=== PATIENT | male | born 1955 | race Caucasian/White ===

== ENCOUNTER 2025-02-16 13:54 | Outpatient (AMB) | payer MEDICARE, SELFPAY ==
[2025-02-16 14:03] VITALS: BMI 26.4
--- NOTE | 2025-02-16 14:03 | HO.SPINEOV ---
Vital Signs 02/16/25 14:03 Height 6 ft Weight 195 lb BMI 26.4 Intake Visit Reasons: LBP Intake Note: Mr. Jacobs is here today c/o Low back pain. 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 Tsai, Thank you for referring Geoff to our office today. 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 He reports that he has had progressively worsening lower extremity weakness independent of rest or ambulation since 2001 when he fell off a deck. He reports that he is still functionally quite well, in his able to complete tasks such as grocery shopping, walking his dogs, and carrying wood. When describing his symptoms he states that he does get the occasional pain in his posterior thighs which he states is not a ?shooting pain? but is more so of a cramping pain. He states the pain is very tolerable, and low-grade in nature. He denies any numbness/tingling/burning associated with the weakness that he has. He does not use any assistive devices to ambulate, and reports no issues with falling/balance. His pain is not bad enough to warrant pain medications, and states that he uses no [id number] patches/creams to help mitigate his symptoms. He has not as of yet attempted cortisone injections to address this pain, and has not been to physical therapy but does state that he has an appointment set up to start in a couple of weeks. PMH: T2DM last A1C reported by PCP office as 5.7 in 2024. Hx of PA (unknown date), AFib w/ resting heart rate elevated >100bpm at baseline per PCP notes, HTN, depression. Social hx: Patient does not smoke, reports no substance use. Medications: Eliquis, metoprolol, Metformin, mirtazapine, aspirin, ketoconazole shampoo, atorvastatin, lisinopril. Allergies: Ofloxacin, Oxycodone. Physical exam: The patient has about 4/5 strength with bilateral iliopsoas testing, worse in the left-hand side in the right. I would also call his bilateral knee flexion about 4/5. The rest of his upper and lower extremity strength is 5/5. He ambulates well with a non spastic nonantalgic gait, and uses no assistive devices to ambulate during this encounter. He rises from a seated position without much difficulty, and gets up onto the examination table without issue. He has no significant sensational deficits to light touch reported during examination. (-) bilateral straight leg raise, (-) Yañez's, (-) clonus. Imaging review: MRI of the lumbar spine completed at [facility] in 2017 has very poor image quality and is difficult to properly assess. There is notable compression at L3-4, whcih appears to show severe central canal and bilateral foraminal stenosis. Newer MRI at [facility] in November 2024 shows severe central canal and bilateral foraminal stenosis at L3-4, moderate central canal and severe bilateral foraminal stenosis at L4-5, and moderate central canal and moderate bilateral foraminal stenosis at L2-3. Impression: Bradley is a pleasant 69-year-old male who comes in today for evaluation of progressively worsening weakness which has worsened very slowly over the course of the last 25 years or so. He has remained very functional despite this, and is still able to complete ADLs and meaningful activities without much issue. He does have fairly severe spinal stenosis, primarily at L3-4. Typically this is something that Dr. Hinkle would treat with L3-4 lumbar decompression, even with an overall lack of pain and neurogenic cladication, which we did discuss during this visit. Before going down that road, I believe it is reasonable to have Geoff complete a course of physical therapy, to see if that can aid his lower extremity weakness at all. If his symptoms subjectively continue to progress despite PT, we may re-evaluate him in clinic for consideration of minimally invasive lumbar decompression L3-4. He understands and agrees to this plan. Thank you for allowing us to care for your patient. The total time spent with this visit with this patient was 45 minutes reviewing history, physical exam, MRI imaging review, and implementation of treatment plan or further diagnostic testing Rommel Hinkle MD,PhD [facility] Coding Level of Care Code New Pt Level 4 (94461) Diagnoses Spinal stenosis M48.00
--- OUTSIDE RECORDS SUMMARY | 2025-02-16 16:35 | XMS_ITS | Encounter Summary ---
Author Organization [facility] Address [address] [place] [address] Care Team Providers Care Global Program Manager Name Role Phone Camden Nova MD Primary Care Provider [phone] Encounter Details Date Type Department Care Team (Late st Contact Info) Description 07/19/2022 Orders Only [facility] Interventional Radiology [address] [place], [place] [phone] Stan Real MD [address] [place], [place] [phone] Social History Tobacco Use Types Packs/Day Years Used Date Smoking Tobacco: Former Smokeless Tobacco: Never Comments:: Alcohol Use Standard Drinks/Week Comments Yes 17 (1 standard drink = 0.6 oz pu re alcohol) Sex and Gender Information Value Date Recorded Sex Assigned at Male 12/29/2020 2:01 PM EDT Legal Sex Male 6:24 AM EDT Gender Identity Male 12/29/2020 2:01 PM EDT Sexual Orientation Straight 12/29/2020 2: 01 PM EDT documented as of this encounter Plan of Treatment Upcoming Encounters Date Type Department Care Team (Late Contact Info) Description 07/15/2025 2:00 PM EST Follow-Up [facility] [place] [place] Rheumatology Clinic [address] [place] [address] [phone] Private Duty Lpn: Geoff Balderas MD [address] [place] [address] [phone] documented as of this encounter Visit Diagnoses Not on filedocumented in this encounter Care Teams Global Program Manager Relationship Specialty Start Date End Date Camden Nova MD PCP - General 10/22/24 documented as of this encounter
--- OUTSIDE RECORDS SUMMARY | 2025-02-16 16:35 | XMS_ITS | Encounter Summary ---
Author Organization [facility] Address [address] [place] [address] Care Team Providers Care Card Assembler Name Role Phone Camden oNva MD Primary Care Provider [phone] Encounter Details Date Type Department Care Team (Latest Contact Info) Description 07/19/2022 myChart Message [facility] Heart [facility] V[facility] Interventional Lab [address] [place] [address] Curtis Preciado MD [address] [place], [place] [phone] Your Recent Visit Social History Tobacco Use Types Packs/Day Years [...] Encounters Date Type Department Care Team (Late st Contact Info) Description 07/15/2025 2:00 PM EST Follow-Up [facility] Rheumatology [facility] [address] [place] [phone] Supervisor Lathing: Geoff Balderas MD [address] [place] [phone] documented as of this encounter Visit Diagnoses Not on filedocumented in this encounter Care Teams Card Assembler Relationship Specialty Start Date End Date Camden Nova MD PCP - General 10/22/24 documented as of this encounter
--- OUTSIDE RECORDS SUMMARY | 2025-02-16 16:35 | XMS_ITS | Encounter Summary ---
Author Organization [employer] Address [address] [facility] [address] [place] [address] Care Team Providers Care Casserole Preparer Name Role Phone Regis Gonzalez PA-C Primary Care Provider [phone] Graciela BRIONES MD, Naveen Griffith Unavailable [phone] Curtis Preciado Unavailable Encounter Details Date Type Department Care Team ([facility] Contact Info) Description 08/10/2024 Telephone [facility] [address] [facility] [address] [place] [phone] Regis Gonzalez PA-C [address] [place] [address] Social History Tobacco Use Types Packs/Day Years Used Date Smoking Tobacco: Never Smokeless Tobacco: Never Alcohol Use Standard Drinks/Week Comments Yes 0 (1 standard drink = 0.6 oz pur e alcohol) 2 drinks/day Alcohol Answer Date Recorded How often do you have a drink containing alcohol ? 2 04/22/2024 How many drinks containing a lcohol do you have on a typical day when you are drinking? 0 04/22/2024 How often do you have six or more drinks on one occasion? 0 04/22/2024 Housing Stability Answer Date Recorded What is your housing situation today? I have stephanie mendieta 04/22/[address] you li ve. Do you have problems with any of the following? None of the above 04/22/2024 Food Insecurity Answer Date Recorded Within the past 12 months, y ou worried that your food would run out before you got money to buy more: Never True 04/22/2024 Within the past 12 months,th e food you bought just didn't last and you didn't have enough money to get more: Never True Transportation Answer Date Recorded In the past 12 months, has l ack of transportation kept you from medical appts, meetings, work or from getting things needed for daily living? No 04/22/2024 Intimate Partner Violence Answer Date R ecorded Within the last year, have y ou been afraid of your partner or ex-partner? 2 04/22/2024 Within the last year, have y ou been humiliated or emotionally abused in other ways by your partner or ex-partner? 2 Within the last year, have y ou been kicked, hit, slapped, or otherwise physically hurt by your partner or ex-partner? 2 04/22/2024 Within the last year, have y ou been raped or forced to have any kind of sexual activity by your partner or ex-partner? 2 04/22/2024 Utilities Answer Date Recorded In the past 12 months, has t he electric, gas, oil or water company threatened to shut off services in your home? No 04/22/2024 Depression Answer Date Recorded Patient Health Questionnaire-2 Score 0 06/22/2024 Internet Access Answer Date Recorded Internet Access Q1 Yes 04/22/2024 Internet Access Q2 Not on file 04/22/2024 Sex and Gender Information Value Date Recorded Sex Assigned at Male 04/03/2024 1:03 PM EDT Legal Sex Male 12:50 PM EDT Gender Identity Male 04/03/2024 1:03 PM EDT Sexual Orientation Straight 04/03/2024 1: 03 PM EDT documented as of this encounter Miscellaneous Notes * Telephone Encounter - Adrianna Downey - 08/14/2024 2:12 PM EST New referral processed and faxed * Telephone Encounter - Noy Bradley - 08/10/2024 4:15 PM EST Patient lm on vmail at 403 pm today stating [facility] and what he got was a referral to [facility] that does not do laser treatment. Please call pt at [phone] documented in this encounter Plan of Treatment Upcoming Encounters Date Type Department Care Team (Late st Contact Info) Description 05/11/2025 1:20 PM EST Office Visit [facility] [address] [place] [address] Regis Gonzalez PA-C [address] [place] [address] documented as of this encounter Visit Diagnoses Not on filedocumented in this encounter Care Teams Casserole Preparer Relationship Specialty Start Date End Date Regis Gonzalez PA-C [address] [place] [address] PCP - General Family Medicine 04/22/24 Naveen Owens II, MD [address] [place] [address] Cardiology 04/10/19 Curtis Preciado [address] [place] [address] Electrophysiology 04/22/24 documented as of this encounter
--- OUTSIDE RECORDS SUMMARY | 2025-02-16 16:35 | XMS_ITS | Encounter Summary ---
Author Organization [employer] Address [address] [facility] [address] [place] [address] Care Team Providers Care Ships Or Barges Loader Name Role Phone Regis Gonzalez PA-C Primary Care Provider [phone] Graciela BRIONES MD, Naveen Griffith Unavailable [phone] Curtis Preciado Unavailable Encounter Details Date Type Department Care Team ([facility] Contact Info) Description 05/04/2024 Orders Only [facility] [address] [place] [address] Provider, Not In System Social History Tobacco Use Types Packs/Day Years [...] Date Recorded Patient Health Questionnaire-2 Score 0 04/22/2024 Internet Access Answer Date Recorded Internet Access [...] Description 05/11/2025 1:20 PM EST Office Visit [facility] [address] [facility] [address] [place] [address] Regis Gonzalez PA-C [address] [place] [address] documented as of this encounter Procedures Procedure Name Priority Date/Time Associated Diagnosis Comments COLONOSCOPY Routine 12/09/2023 8:40 AM EDT documented in this encounter Results * Hm Colonoscopy (12/09/2023 8:40 AM EDT) us Not In System Provider [facility] Edited Result - Final documented in this encounter Visit Diagnoses Not on filedocumented in this encounter Care Teams Ships Or Barges Loader Relationship Specialty Start Date End Date Regis Gonzalez PA-C [address] [place] [id number] PCP - General Family Medicine 04/22/24 Naveen Owens II, MD [address] [place] [address] Cardiology 04/10/19 Curtis Preciado [address] [place] [address] Electrophysiology 04/22/24 documented as of this encounter
--- OUTSIDE RECORDS SUMMARY | 2025-02-16 16:35 | XMS_ITS | Encounter Summary ---
Author Organization [employer] Address [address] [facility] [address] [place] [address] Care Team Providers Care Rod Greaser Name Role Phone Regis Gonzalez PA-C Primary Care Provider [phone] Graciela BRIONES MD, Naveen Griffith Unavailable [phone] Curtis Preciado Unavailable Encounter Details Date Type Department Care Team (Late Contact Info) Description 02/10/2025 Orders Only [place] [address] [place] [address] Provider, Not In System Social History Tobacco [...] Description 05/11/2025 1:20 PM EST Office Visit [facility] [address] [facility] [address] [place] [address] Regis Gonzalez PA-C [address] [place] [address] documented as of this encounter Procedures Procedure Name Priority Date/Time Associated Diagnosis Comments NERVE CONDUCTION TEST Routine 01/12/2025 9:49 AM EDT documented in this encounter Results * Nerve conduction test (01/12/2025 9:49 AM EDT) us Not In System Provider NEUROLOGY ORDERABLES Peg l Result documented in this encounter Visit Diagnoses Not on filedocumented in this encounter Care Teams Rod Greaser Relationship Specialty Start Date End Date Regis Gonzalez PA-C [address] [place] [id number] PCP - General Family Medicine 04/22/24 Naveen Owens II, MD [address] [place] [address] Cardiology 04/10/19 Curtis Preciado [address] [place] [address] Electrophysiology 04/22/24 documented as of this encounter
--- OUTSIDE RECORDS SUMMARY | 2025-02-16 16:35 | XMS_ITS | Clinical Summary ---
Author Organization [facility] Address [address] [place] [address] Care Team Providers Care Branch Banker Name Role Phone Camden Nova MD Primary Care Provider Allergies Active Allergy Reactions Criticality Noted Date Comments Amifloxacin Unknown 10/22/2024 Moxifloxacin Hives 03/12/2022 Ofloxacin Rash Low 04/22/2024 Has taken Cipro Oxycodone Hcl Dystonia MYOCLONIC JERKING PER PT Oxycodone-Acetaminophen Unknown 10/22/2024 Medications atorvastatin (LIPITOR) 80 mg tablet Take 80 mg by mouth nightly. 7 Active aspirin (ADULT LOW DOSE ASPIRIN) 81 mg EC tablet Take 1 tablet (81 mg total) by mouth daily. 8 Active metFORMIN XR (GLUCOPHAGE-XR) 750 mg 24 hr tablet Take 750 mg by mouth daily with breakfast. Active coenzyme Q10 100 mg capsule Take 100 mg by mouth once a day. Active apixaban (ELIQUIS) 5 mg tablet Take 5 mg by mouth every 12 hours. Active mirtazapine (REMERON) 7.5 mg tablet Take 7.5 mg by mouth at bed time. at bedtime. 5 Active lisinopriL (PRINIVIL,ZESTR IL) 30 mg tablet SMARTSI Tablet(s) Daily Active metoprolol succinate XL (TOPROL XL) 25 mg tablet TAKE 1 TABLET ONCE DAILY. DO NOT CRUSH OR CHEW. 5 Active ketoconazole (NIZORAL) 2% shampoo Apply topically to the affected area 2 times a week. 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 12/04/2021 Ischemic cardiomyopathy 12/04/2021 Neurogenic claudication 12/04/2021 Tubular adenoma of colon 12/04/2021 Diabetes mellitus 08/20/2016 Dyslipidemia 08/20/2016 Empyema 08/20/2016 Persistent atrial fibrillation 07/26/2016 Arteriosclerosis of coronary artery 07/26/2016 Dyslipidemia 07/26/2016 Benign essential hypertension 07/26/2016 Diabetes mellitus 06/28/2016 Resolved Problems Problem Noted Date Diagnosed Date Resolved Date Cardiomyopathy 06/28/2016 06/21/2022 Encounters Date Type Department Care Team Description 01/12/2025 10:00 AM EDT Procedure visit [facility] [address] [place] [address] Jethro Bullock MD Peripheral polyneuropathy (Primary Dx); Muscle weakness; Seborrheic dermatitis, unspecified from Last 3 Months Immunizations Immunization Administration Dates Next Due Covid-19, Pfizer, mRNA, [place] valent, PF 30 mcg/0.3 mL dose (for ages 12 and older) 06/18/2020,05/28/2020 INFLUENZA, SPLIT VIRUS, TRIVALENT, PF 02/26/2018 Family History Medical History Relation Name Comments Hepatitis Brother Cancer Father prostate Heart disease Father Hyperlipidemia Father Arthritis Mother Cancer Mother breast Hypertension Mother Relation Name Status Comments Brother Father Mother Social History Tobacco Use Types Packs/Day Years Used Date Smoking Tobacco: Former Cigarettes 1 969 - 1988 Cigars Smokeless Tobacco: Never Tobacco Cessation:Counseling Given: Not Answered Alcohol Use Standard Drinks/Week Comments Yes 17 (1 standard drink = 0.6 oz pu re alcohol) Sex and Gender Information Value Date Recorded Sex Assigned at Male 12/29/2020 2:01 PM EDT Legal Sex Male 6:24 AM EDT Gender Identity Male 12/29/2020 2:01 PM EDT Sexual Orientation Straight 12/29/2020 2: 01 PM EDT Last Filed Vital Signs Vital Sign Reading Time Taken Comments Blood Pressure 150/88 10/22/2024 12:37 PM EDT Pulse 88 10/22/2024 12:37 PM EDT Temperature 36.9 C (98.4 F) 10/22/2024 12:37 PM EDT Respiratory Rate 14 08/30/2022 2:15 PM EDT Oxygen Saturation 97% 09/06/2022 4:28 PM EDT Inhaled Oxygen Concentration - - Weight 86.2 kg (190 lb) 10/22/2024 12:37 PM EDT Height 182.9 cm (6') 08/30/2022 7:07 AM EDT Body Mass Index 25.77 08/30/2022 7:07 AM EDT Plan of Treatment Upcoming Encounters Date Type Department Care Team (Late st Contact Info) Description 07/15/2025 2:00 PM EST Follow-Up [facility] [address] [place] [id number] Inspector Filter Tip: Geoff Balderas MD [address] [place] [id number] Health Maintenance Due Date Last Done Comments Cologuard 1954 Hepatitis C Screening 1954 Sigmoidoscopy 1954 Ophthalmology Exam 1964 Urine Microalbumin 1964 DTaP,Tdap,and Td Vaccines (1 - Tdap) 1976 Hemoglobin A1C 12/11/2016 06/13/2016 Basic Metabolic Panel 08/17/2023 08/16/2022 , 12/27/2016, 06/16/2016, Additional history exists Alcohol/Substance Use Screening 06/10/2024 Depression Screening and Follow-Up 06/10/2024 Health Care Proxy Review 06/10/2024 Social Drivers of Health Annual Screening 06/10/2024 COVID-19 Vaccine ( season) 2025 03/13/2024, 12/15/2023, 12/15/2023, Additional history exists Influenza Vaccine (#1) 2025 , 02/26/2023, 03/26/2022, Additional history exists FOBT / Fit Test 08/03/2025 08/03/2024 Colon Cancer Screening 01/06/2034 Colonoscopy 01/06/2034 01/07/2024, 07/06/2019 CT Lung Cancer Screening (12 months, previous LungRADS 1 or 2) Discontinued Zoster Vaccines Completed 07/30/2021, 04/26/2021 RSV Vaccine (60+ years old and patients) Completed 03/12/2023 Pneumococcal Vaccine: 50+ Years Completed 08/04/2023, 05/09/2020 Hepatitis B Vaccines Aged Out No long er eligible based on patient's age to complete this topic Medical Devices Implanted Type Area Staff Editor Device Identifier Shelf Expiration Date Model / Serial / Lot System Closure Vascular Venous Mvp 6-12fr Vascade - [id number] Implanted:Qty: 1 on 08/30/2022 by Curtis Preciado MD at [facility] Implant Right: Groin [employer] [id number] 05/16/2024 800-612C-1 0U / / [id number] System Closure Vascular Venous Mvp 6-12fr Vascade - [id number] Implanted:Qty: 1 on 08/30/2022 by Curtis Preciado MD at [facility] Implant Right: Groin [employer] [id number] 05/16/2024 800-612C-1 0U / / [id number] System Closure Vascular Venous Mvp 6-12fr Vascade - [id number] Implanted:Qty: 1 on 08/30/2022 by Curtis Preciado MD at [facility] Implant Left: Groin [employer] [id number] 05/16/2024 800-612C-1 0U / / [id number] [id number] System Closure Vascular Venous Mvp 6-12fr Vascade - [id number] Implanted:Qty: 1 on 08/30/2022 by Curtis Preciado MD at [facility] Implant Left: Groin [employer] [id number] 05/16/2024 800-612C-1 0U / / [id number] 9C Procedures * Due to [place] state law, this organization might not be sharing negative HIV tests. Procedure Name Priority Date/Time Associated Diagnosis Comments EMG/ NCS/ NEUROMUSCULAR ULTRASOUND Routine 01/12/2025 9:28 AM EDT Muscle weakness Seborrheic dermatitis, unspecified BASIC METABOLIC PANEL Routine 08/16/2022 7:51 AM EST Paroxysmal atrial fibrillation HEMOGLOBIN A1C STAT 06/13/2016 1:[address] CHEST WO CONTRAST Routine EST from Last 3 Months or Most Recently Relevant to Health Maintenance Results * Due to [place] [employer] law, this organization might not be sharing negative HIV tests. * [facility] AUTO ADVANCE (01/12/2025 9:28 AM EDT) Geoff Hughes MD NEUROLOGY ORDERABLES Peg l Result * (ABNORMAL) Basic metabolic panel (08/16/2022 7:51 AM EST) NA 137 135 - 145 mmol/L 08/16/2022 8:48 AM EST [facility] K 4.2 3.5 - 5.3 mmol/L 08/16/2022 8:48 AM EST [facility] Cl 105 97 - 110 mmol/L 08/16/2022 8:48 AM EST [facility] CO2 24 24 - 32 mmol/L 08/16/2022 8:48 AM EST [facility] BUN 13 7 - 23 mg/dL 08/16/2022 8:48 AM EST [facility] Creatinine 0.81 0.60 - 1.30 mg/dL 08/16/2022 8:48 AM EST [facility] Glucose 144(H) 70 - 99 mg/dL 08/16/2022 8:48 AM EST [facility] Calcium 9.2 8.7 - 10.7 mg/dL 08/16/2022 8:48 AM EST [facility] Anion Gap 8 5 - 15 08/16/2022 8:48 AM EST [facility] eGFR >90 >=90 mL/min/1. 73m2 08/16/2022 8:48 AM EST [facility] Comment: Estimated Glomerular Filtration Rate (GFR) calculated using the CKD-EPI refit equation. The different stages of CKD form a continuum. The stages of CKD are classified as follows : Stage 1: Normal or increased GFR (>90 mL/min/1.73 m2) Stage 2: Mild reduction in GFR (60-89 mL/min/1.73 m2) Stage 3a: Moderate reduction in GFR (45-59 mL/min/1.73 m2) Stage 3b: Moderate reduction in GFR (30-44 mL/min/1.73 m2) Stage 4: Severe reduction in GFR (15-29 mL/min/1.73 m2) Stage 5: Kidney failure (GFR < 15 mL/min/1.73 m2 or dialysis) Blood Structure of peripheral vein / Unknown Venipuncture / Unknown 08/16/2022 7:51 AM EST 08/16/2022 8:21 AM EST Chalo Emanuel [facility] LAB BLOOD ORDERABLES Fin al Result [facility] [address] [place] [address], * (ABNORMAL) Hemoglobin A1c (06/13/2016 1:49 AM EST) Hemoglobin A1C 9.8(H) <5.7 [facility] Comment: UNITS OF MEASURE: % of total Hgb According to ADA guidelines, hemoglobin A1c <7.0% represents optimal control in non- diabetic patients. Different metrics may apply to specific patient populations. Standards of Medical Care in Diabetes-2013. Diabetes Care. 2013;36:s11-s66 For the purpose of screening for the presence of diabetes <5.7% Consistent with the absence of diabetes 5.7-6.4% Consistent with increased risk for diabetes (prediabetes) >or=6.5% Consistent with diabetes This assay result is consistent with diabetes mellitus. Currently, no consensus exists for use of hemoglobin A1c for diagnosis of diabetes for children. eAG (MG/DL) 235 () (calc) [facility] eAG (MMOL/L) 13.0 () (calc) [facility] 06/13/2016 1:49 AM EST 06/13/2016 2:16 AM EST us Irmaabel Tomlinson LAB BLOOD ORDERABLES Final Resul t [facility] [address] [facility] [address], [place] [address], [place] * CT Chest WO Contrast ( EST) Anatomical Region Laterality Modality Body Computed Tomogra phy 06/10/1900 12:0 1 AM EST Narrative 11/16/2013 1:41 PM EDT Final Report DATE OF EXAM: Nov 16 2013 [facility] 9725 - CT CHEST -C : CPT: 31975 RESULT: Clinical History: Empyema right lung. Technique: Noncontrast-enhanced CT of the chest was performed. Findings: There are emphysematous changes with hyperinflation. There is a right-sided pleural effusion, which appears to be loculated with the biggest dimension along the posterior medial aspect of the lung base. A pigtail catheter is seen within this fluid. A smaller component is seen in an anterior juxtacardiac location. No intrapulmonary lung masses are seen at this time. There are subcentimeter lower paratracheal and subcarinal lymph nodes. Visualized portions of the upper abdomen are unremarkable. IMPRESSION: Loculated right-sided pleural effusion with a pigtail catheter in place. Overall, this is of small size. Prior CTs were not available for comparison. Edited by: simeon Interpreting Physician: BRUNO COLEMAN MD Transcribed by / Date:christopher HENDRIX on Nov 16 2013 10:11A Approved Electronically by / Date: BRUNO COLEMAN MD Nov 16 2013 1:41P Distribution: Attending ALOK SANCHEZ PCP GM SHANKS Ordering Dr: ALOK SANCHEZ Procedure Note Bruno Coleman MD - 02/09/2017 Final Report DATE OF EXAM: Nov 16 2013 [facility] 9725 - CT CHEST -C : CPT: 34027 RESULT: Clinical History: Empyema right lung. Technique: Noncontrast-enhanced CT of the chest was performed. Findings: There are emphysematous changes with hyperinflation. There is a right-sided pleural effusion, which appears to be loculated with the biggest dimension along the posterior medial aspect of the lung base. A pigtail catheter is seen within this fluid. A smaller component is seen in an anterior juxtacardiac location. No intrapulmonary lung masses are seen at this time. There are subcentimeter lower paratracheal and subcarinal lymph nodes. Visualized portions of the upper abdomen are unremarkable. IMPRESSION: Loculated right-sided pleural effusion with a pigtail catheter in place. Overall, this is of small size. Prior CTs were not available for comparison. Edited by: simeon Interpreting Physician: BRUNO COLEAMN MD Transcribed by / Date:tab SIMEON on Nov 16 2013 10:11A Approved Electronically by / Date: BRUNO COLEMAN MD Nov 16 2013 1:41P Distribution: Attending ALOK SANCHEZ PCP GM SHANKS Ordering Dr: ALOK SANCHEZ Alok Sanchez MD IMG CT PROCEDURES Final Result from Last 3 Months or Most Recently Relevant to Health Maintenance Insurance BCBS MCR REPLACE PPO BCBS MCR REPLACE PPO Advance Directives Documents on File Type Date Recorded Patient Service Assistant Expl anation Health Care Proxy 06/12/2016 12:00 AM 017 * Full Code (Latest Code Status on File) Date Activated Date Inactivated Comments 08/30/2022 12:23 PM 08/30/2022 6:52 PM * Full Code Date Activated Date Inactivated Comments 08/30/2022 7:07 AM 08/30/2022 12:23 PM * Full Code Date Activated Date Inactivated Comments 08/30/2022 7:07 AM 08/30/2022 7:07 AM Care Teams Branch Banker Relationship Specialty Start Date End Date Camden Nova MD PCP - General 10/22/24
--- OUTSIDE RECORDS SUMMARY | 2025-02-16 16:35 | XMS_ITS | Clinical Summary ---
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 Active atorvastatin (Lipitor) 80 MG tablet Take 1 tablet by mouth Once per day. Active coenzyme Q-10 100 MG capsule Take 100 mg by mouth Once per day. Active ketoconazole (NIZOral) 2 % shampoo APPLY TO DAMP SKIN, LATHER AND LEAVE ON FOR 5-10 MINUTES AND RINSE OFF. APPLY TO AFFECTED AREA TWICE WEEKLY Active metroNIDAZOLE (Metrocream) 0.75 % cream apply cream topically twice daily 01/12/20 25 Active metoprolol succinate XL (Toprol XL) 50 MG 24 hr tablet Take 1 tablet (50 mg) by mouth Once per day. Do not crush or chew. Dose increase 90 tablet 02/05/20 25 025 Active mirtazapine (Remeron) 15 MG tablet Take 1 tablet (15 mg) by mouth at bedtime. 90 tablet 02/05/20 25 025 Active Eliquis 5 MG tablet Take 1 tablet (5 mg) by mouth 2 times daily. 90 day supply 180 tablet 02/05/20 25 Active metFORMIN XR (Glucophage-XR ) 750 MG 24 hr tablet Take 1 tablet (750 mg) by mouth Once per day. 90 tablet 02/05/20 25 Active lisinopril 30 MG tablet TAKE 1 TABLET ONCE DAILY 90 tablet 02/10/20 Active metFORMIN XR (Glucophage-XR ) 750 MG 24 hr tablet Take 1 tablet by mouth Once per day. 025 Discontinued(Re order (will not trigger notification to Pharmacy)) Eliquis 5 MG tablet Take 1 tablet (5 mg) by mouth 2 times daily. 90 day supply 180 tablet 11/05/19 25 025 Discontinued(Re order (will not trigger notification to Pharmacy)) lisinopril 30 MG tablet TAKE 1 TABLET ONCE DAILY 90 tablet 11/24/19 25 025 Discontinued metoprolol succinate XL (Toprol-XL) 25 MG 24 hr tablet TAKE 1 TABLET DAILY. DO NOTCRUSH OR CHEW 90 tablet 12/16/19 25 025 Discontinued(Th erapy completed) mirtazapine (Remeron) 7.5 MG tablet TAKE 1 TABLET AT BEDTIME 30 tablet 1 01/12/20 25 025 Discontinued(In effective) Active Problems Problem Noted Date Diagnosed Date IFG (impaired fasting glucose) 08/06/2024 Assessment & Plan (02/04/2025 7:43 PM EDT): A1c order in for repeat in next 3 months or so Assessment & Plan (11/05/2024 7:21 PM EDT): - A1c is slightly elevated at 5.7. Previous readings have been between 5.4 and 5.8. - Recheck A1c in 3 months. Continue metformin 750 daily, Consider stopping if A1c returns to normal. Assessment & Plan (08/06/2024 6:30 PM EST): A1C is 5.7 No need for medication, recheck 6 months Onychomycosis 08/05/2024 Assessment & Plan (11/05/2024 7:22 PM EDT): - Onychomycosis is being managed at home with light therapy. Previous treatments with oral terbinafine did not produce lasting results. - Referral to podiatry for further management--provided info. Consider debridement at podiatry. Assessment & Plan (08/05/2024 6:24 PM EST): Refer to podiatry Muscle weakness 08/05/2024 Assessment & Plan (11/05/2024 7:22 PM EDT): - Muscle weakness is being managed by rheumatology. It is suspected to be due to spinal stenosis, with statins possibly contributing. Myositis antibodies are negative. Focal weakness and absence of reflexes suggest a neurological rather than systemic issue, localized to the upper lumbar level. (Per rheum note) - pending EMG and MRI to further investigate. Assessment & Plan (08/06/2024 6:29 PM EST): CPK back to normal JAYRO is negative Aldolase still pending Refer to rheumatology Reactive depression 06/22/2024 Assessment & Plan (11/05/2024 7:21 PM EDT): Mirtazapine is being taken at 7.5 mg nightly, helping some - Consider increasing mirtazapine to 15 mg if needed. ECG at next visit especially if increase dose. He will message or call. Assessment & Plan (06/23/2024 7:58 AM EST): He would like to try Mirtazapine QTc from 2021 was 460 Through shared decision making we agreed ECG next time, Mirtazapine 7.5 mg nightly for now. He will probably wait until he sees how Toprol makes him feel Paroxysmal atrial fibrillation 04/22/2024 Assessment & Plan (02/04/2025 7:43 PM EDT): AC with Eliquis Cardiology notes says off anti arrhythmic so unclear if Toprol for rate control or CAD Assessment & Plan (06/22/2024 3:31 PM EST): Currently sounds regular Continue Eliquis Assessment & Plan (04/22/2024 6:47 PM EST): On Eliquis but no rate control Used to be on beta block and/or Sotalol Check last office notes Will see Dr. Owens early 2024, but let them know about statin once we get repeat CPK Primary hypertension 04/22/2024 Assessment & Plan (02/04/2025 7:43 PM EDT): Uncontrolled. Notes clinic reading consistent with home Increased Toprol 25-->50 daily Continue Lisinopril 30 mg daily Assessment & Plan (11/05/2024 7:20 PM EDT): Currently on lisinopril 30 mg and Toprol 25 mg. Well controlled, continue Assessment & Plan (06/22/2024 3:30 PM EST): Okay on Lisinopril 30 Due to tachycardia, agreeable to Toprol 25 and will discuss with cardiology Assessment & Plan (04/22/2024 6:49 PM EST): Uncontrolled Increase Lisinopril 20-->30 He will monitor with home cuff Arteriosclerosis of coronary artery 07/26/2016 Assessment & Plan (02/04/2025 7:43 PM EDT): S/p stent x3 Aspirin, statin, beta herb continued Increased Toprol 25-->50 daily Assessment & Plan (06/23/2024 7:57 AM EST): Continue aspirin, statin Adding Toprol, he will discuss with cardiology at upcoming appt Resolved Problems Problem Noted Date Diagnosed Date Resolved Date 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 04/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 08/06/2024 Non-traumatic rhabdomyolysis 04/22/2024 02/04/2025 Assessment & Plan (04/25/2024 7:59 AM EST): CK < 10x ULN at 254 Resume statin, watch for myalgias Requested he please tell cardiology of 3 month gap in statin therapy Encounters Date Type Department Care Team Description 02/10/2025 Orders Only [facility] Information [facility] [address] [place] [address] Provider, Not In System 02/06/[address] [phone] Regis Gonazlez PA-C 02/04/2025 1:40 PM EDT Office Visit [facility] [address] [facility] [address] [place] [address] Regis Gonzalez PA-C Arteriosclerosis of coronary artery (Primary Dx); Primary hypertension; Paroxysmal atrial fibrillation (CMS/HCC); IFG (impaired fasting glucose); Spinal stenosis of lumbar region, unspecified whether neurogenic claudication present; Weakness of both lower extremities; Screening for viral disease 02/02/2025 Travel 01/10/[address] [phone] Regis Gonzalez PA-C 12/13/[address] [phone] Regis Gonzalez PA-C 11/30/2024 Orders Only [facility] Information [facility] [address] [place] [address] Provider, Not In System 11/23/[address] [phone] Regis Gonzalez PA-C from Last 3 Months Immunizations Immunization Administration Dates Next Due Influenza High-dose Quadrivalent Preservative Fr ee 03/26/2022,03/03/2021 Influenza Quadrivalent Adjuvanted 02/26/2023 Influenza, High Dose Seasonal, Preservative Free 03/13/2024,02/04/2020 Influenza, seasonal, injectable, preservative fr ee 02/18/2019,02/26/2018 Pneumococcal Conjugate PCV 13 05/09/2020 Pneumococcal Conjugate PCV 20 08/04/2023 Pneumococcal, Unspecified 08/04/2023 RSV Adjuvant 03/12/2023 RSV-MAB, Unspecified 03/12/2023 Zoster, Recombinant 07/30/2021,04/26/2021 Family History Medical History Relation Name Comments Breast cancer Father Esophageal cancer Maternal Grandfather Breast cancer Maternal Grandmother Prostate cancer Mother Relation Name Status Comments Father Maternal Grandfather Maternal Grandmother Mother Social History Tobacco Use Types Packs/Day Years Used Date Smoking Tobacco: Never Smokeless Tobacco: Never Tobacco Cessation:Counseling Given: Not Answered Alcohol Use Standard Drinks/Week Comments Yes 0 [...] Orientation Straight 04/03/2024 1: 03 PM EDT Last Filed Vital Signs Vital Sign Reading Time Taken Comments Blood Pressure 152/97 02/04/2025 2:16 PM EDT Pulse 90 02/04/2025 1:46 PM EDT Temperature 36.7 C (98 F) 02/04/2025 1:46 PM EDT Respiratory Rate - - Oxygen Saturation 98% 02/04/2025 1:46 PM EDT Inhaled Oxygen Concentration - - Weight 88.5 kg (195 lb) 02/04/2025 1:46 PM EDT Height 182.9 cm (6') 04/22/2024 1:52 PM EST Body Mass Index 26.45 04/22/2024 1:52 PM EST Plan of Treatment Upcoming Encounters Date Type Department Care Team (Late st Contact Info) Description 05/11/2025 1:20 PM EST Office Visit [facility] [address] [facility] [address] [place] [address] Regis Gonzalez PA-C [address] [place] [address] Health Maintenance Due Date Last Done Comments CT Colonography 1954 FIT DNA/Cologuard 1955 FIT 1955 FOBT 1955 Sigmoidoscopy 1955 Hepatitis C Screening 1972 DTaP/Tdap/Td Vaccines (1 - Tdap) 1973 Diabetes: Hemoglobin A1C 01/31/2025 08/03/2024, 1111/2023 COVID-19 Vaccine ( season) 2025 03/13/2024, 12/15/2023, 02/26/2023, Additional history exists Influenza Vaccine (#1) 2025 , 02/26/2023, 03/26/2022, Additional history exists Alcohol/Substance Use Screening 04/22/2025 04/22/2024 Diabetes: Urine Protein Screening 05/05/2025 05/05/2024 Lipid Panel 05/05/2025 05/05/2024 Diabetes: Foot Exam 06/10/2025 Postpone d from 1964 (Patient Does Not Have Time) Depression Screening 06/22/2025 06/22/2024, 06/22/19 SDOH Screening 06/22/2025 06/22/2024 Tobacco Screening 02/04/2026 02/04/2025 Eye Exam 11/26/2026 11/26/2024 Colonoscopy 01/06/2034 01/07/2024, 12/09/2023 Colorectal Cancer Screening 01/06/2034 Zoster Vaccines Completed 07/30/2021, 04/26/2021 RSV Patients and Patients Aged 60 years or older Completed 03/12/2023 RSV under 20 months Aged Out 03/12/2023 No longe r eligible based on patient's age to complete this topic Pneumococcal Vaccine: 50+ Years Completed 08/04/2023, 08/04/2023, 05/09/2020 HIB Vaccines Aged Out No longer eligi ble based on patient's age to complete this topic HPV Vaccines Aged Out No longer eligi ble based on patient's age to complete this topic Hepatitis A Vaccines Aged Out No long er eligible based on patient's age to complete this topic Hepatitis B Vaccines Aged Out No long er eligible based on patient's age to complete this topic IPV Vaccines Aged Out No longer eligi ble based on patient's age to complete this topic Meningococcal B Vaccine Aged Out No l onger eligible based on patient's age to complete this topic Meningococcal Vaccine Aged Out No mingo clark eligible based on patient's age to complete this topic Rotavirus Vaccines Aged Out No longer eligible based on patient's age to complete this topic Procedures Procedure Name Priority Date/Time Associated Diagnosis Comments NERVE CONDUCTION TEST Routine 01/12/2025 9:49 AM EDT HM DIABETES EYE EXAM Routine 11/26/2024 10:13 AM EDT HEMOGLOBIN A1C Routine 08/03/2024 3:20 PM EST IFG (impaired fasting glucose) ALBUMIN, RANDOM URINE W/CREATININE Routine 05/05/2024 11:44 AM EST Disorder associated with type 2 diabetes mellitus (CMS/HCC) Primary hypertension LIPID PANEL WITH REFLEX TO DIRECT LDL Routine 05/05/2024 11:44 AM EST Disorder associated with type 2 diabetes mellitus (CMS/HCC) Primary hypertension COLONOSCOPY Routine 01/07/2024 1:05 PM EDT from Last 3 Months or Most Recently Relevant to Health Maintenance Results * Nerve conduction test (01/12/2025 9:49 AM EDT) us Not In System Provider NEUROLOGY ORDERABLES Peg l Result * Diabetes Eye Exam (11/26/2024 10:13 AM EDT) us Not In System Provider HEALTH MAINTENANCE Edited Result - Final * (ABNORMAL) Hemoglobin A1c (08/03/2024 3:20 PM EST) Hemoglobin A1c 5.7(H) <5.7 % of total Hgb [email or web address] Comment: For someone without known diabetes, a hemoglobin A1c value between 5.7% and 6.4% is consistent with prediabetes and should be confirmed with a follow-up test. For someone with known diabetes, a value <7% indicates that their diabetes is well controlled. A1c targets should be individualized based on duration of diabetes, age, comorbid conditions, and other considerations. This assay result is consistent with an increased risk of diabetes. Currently, no consensus exists regarding use of hemoglobin A1c for diagnosis of diabetes for children. Blood Venous blood specimen / Unknown 08/03/2024 3:20 PM EST 08/03/2024 3:21 PM EST us Regis Gonzalez PA-C LAB BLOOD ORDERABLES Final R esult [facility] [address], [place] [address] [email or web address] [address] [place] [address] * (ABNORMAL) Lipid Panel with Reflex to Direct LDL (05/05/2024 11:44 AM EST) Cholesterol, Total 126 <200 mg/dL [employer] [employer] HDL Cholesterol 43 > OR = 40 mg/dL [facility] [employer] Triglycerides 219(H) <150 mg/dL [facility] [employer] [employer] Comment: If a non-fasting specimen was collected, consider repeat triglyceride testing on a fasting specimen if clinically indicated. Cathie et al. J. of Clin. Lipidol. 2015;9:129-169. LDL Cholesterol 54 mg/dL [facility] [employer] Comment: Reference range: <100 Desirable range <100 mg/dL for primary prevention; <70 mg/dL for patients with CHD or diabetic patients with > or = 2 CHD risk factors. LDL-C is now calculated using the Justino-Rupa calculation, which is a validated novel method providing better accuracy than the Friedewald equation in the estimation of LDL-C. Justino SS et al. PALLAVI. 2013;310(19): 4993-4142 (http://education.StrataCloud/faq/MTM259) Chol/HDLC Ratio 2.9 <5.0 (calc) [facility] [employer] Non-HDL Cholesterol 83 <130 mg/dL [facility] [employer] Comment: For patients with diabetes plus 1 major ASCVD risk factor, treating to a non-HDL-C goal of <100 mg/dL (LDL-C of <70 mg/dL) is considered a therapeutic option. Blood Venous blood specimen / Unknown 05/05/2024 11:44 AM EST 05/05/2024 11:46 AM EST Regis Gonzalez PA-C LAB BLOOD ORDERABLES Final R esult [facility] [address] [place] [address] [facility] [employer] [address] [place] [address] * Albumin, Random Urine W/Creatinine (05/05/2024 11:44 AM EST) Creatinine, Random Urine 197 20 - 320 mg/dL [facility] [employer] Albumin, Urine 0.7 See Note: mg/dL [facility] [employer] Comment: Reference Range: Reference Range Not established Albumin/Creatinin e Ratio, Random Urine 4 <30 mg/g creat [employer] Comment: The ADA defines abnormalities in albumin excretion as follows: Albuminuria Category Result (mg/g creatinine) Normal to Mildly increased <30 Moderately increased 30-299 Severely increased > OR = 300 The ADA recommends that at least two of three specimens collected within a 3-6 month period be abnormal before considering a patient to be within a diagnostic category. Urine (Urine, Random) 05/05/2024 11:44 AM EST 05/05/2024 11:46 AM EST us Regis Gonzalez PA-C LAB URINE ORDERABLES Final R esult [facility] [address] [place] [address] [facility] [employer] [address] [place] [address] * Hm Colonoscopy (01/07/2024 1:05 PM EDT) us Not In System Provider HEALTH MAINTENANCE Edited Result - Final from Last 3 Months or Most Recently Relevant to Health Maintenance [place] [place] [address] MEDICARE REPLACEMENT PPO Care Teams Button Cutting Machine Operator Relationship Specialty Start Date End Date Regis Gonzalez PA-C [address] [place] [address] PCP - General Family Medicine 04/22/24 Naveen Owens II, MD [address] [place], [place] [phone] Cardiology 04/10/19 Curtis Preciado [address] [place], [place] [phone] Electrophysiology 04/22/24
--- OUTSIDE RECORDS SUMMARY | 2025-02-16 16:35 | XMS_ITS | Clinical Summary ---
Author Organization [employer] [facility] Address [address] [place] [address] Care Team Providers Care Dispatcher Refinery Name Role Phone Unavailable Primary Care Provider Unavailabl e Social History Tobacco Use Types Packs/Day Years Used Date Smoking Tobacco: Never Assessed Sex and Gender Information Value Date Recorded Sex Assigned at Not on file Legal Sex Male 7:13 PM EDT Gender Identity Not on file Sexual Orientation Not on file Plan of Treatment Health Maintenance Due Date Last Done Comments Hepatitis C Screening 1955 DTaP/Tdap/Td (1 - Tdap) 1972 Pneumococcal 50+ years (1 of 1 - PCV) 2004 Zoster (Shingrix) (1 of 2) 2004 COVID-19 Vaccine ( - 2023-2 5 season) 2025 Influenza (#1) 2025 RSV (1 - 1-dose 75+ series) 2029 Abdominal Aorta Imaging Discontinued HPV Vaccine (No Doses Required) Completed Hep A Aged Out No longer eligi ble based on patient's age to complete this topic Hep B Aged Out No longer eligi ble based on patient's age to complete this topic Hib Aged Out No longer eligi ble based on patient's age to complete this topic Meningococcal ACWY Aged Out No longer eligible based on patient's age to complete this topic Zoster (Zostavax) Discontinued
--- OUTSIDE RECORDS SUMMARY | 2025-02-16 16:35 | XMS_ITS | Encounter Summary ---
Author Organization [employer] Address [address] [facility] 7t [place] [address] Care Team Providers Care Elect Equip Maint Eng Name Role Phone Regis Gonzalez PA-C Primary Care Provider [phone] Graciela BRIONES MD, Naveen Griffith Unavailable [phone] Curtis Preciado Unavailable Encounter Details Date Type Department Care Team (Late st Contact Info) Description 04/30/2024 Orders Only [facility] [address] [place] [id number] Regis Gonzalez PA-C [address] [place], [place] [id number] Disorder associated with type 2 diabetes mellitus (CMS/HCC); Primary hypertension Social History Tobacco Use Types Packs/Day Years [...] the past 12 months, has t he [employer], gas, oil or water [employer] threatened to shut off services in your [...] Description 05/11/2025 1:20 PM EST Office [facility] [address] [facility] [address] [place] [address] Regis Gonzalez PA-C [address] [place], [place] [id number] documented as of this encounter Procedures Procedure Name Priority Date/Time Associated Diagnosis Comments LIPID PANEL WITH REFLEX TO DIRECT LDL Routine 05/05/2024 11:44 AM EST Disorder associated with type 2 diabetes mellitus (CMS/HCC) Primary hypertension ALBUMIN, RANDOM URINE W/CREATININE Routine 05/05/2024 11:44 AM EST Disorder associated with type 2 diabetes mellitus (CMS/HCC) Primary hypertension CBC WITH AUTO DIFFERENTIAL Routine 05/05/2024 11:44 AM EST Disorder associated with type 2 diabetes mellitus (CMS/HCC) Primary hypertension HEMOGLOBIN A1C Routine 05/05/2024 11:44 AM EST Disorder associated with type 2 diabetes mellitus (CMS/HCC) Primary hypertension VITAMIN B12 Routine 05/05/2024 11:44 AM EST Disorder associated with type 2 diabetes mellitus (CMS/HCC) Primary hypertension COMPREHENSIVE METABOLIC PANEL Routine 05/05/2024 11:44 AM EST Disorder associated with type 2 diabetes mellitus (CMS/HCC) Primary hypertension documented in this encounter Results * Vitamin B12 (05/05/2024 11:44 AM EST) Vitamin B12 438 200 - 1,100 pg/mL [facility] [place] [facility] Blood Venous blood specimen / Unknown 05/05/2024 11:44 AM EST 05/05/2024 11:46 AM EST Regis Gonzalez PA-C LAB BLOOD ORDERABLES Final R esult [facility] [address], [place] [address] [facility] [place] [facility] [address] [place] [address] * (ABNORMAL) Comprehensive Metabolic Panel (05/05/2024 11:44 AM EST) Glucose 117(H) 65 - 99 mg/dL [facility] Comment: Fasting reference interval For someone without known diabetes, a glucose value between 100 and 125 mg/dL is consistent with prediabetes and should be confirmed with a follow-up test. Urea Nitrogen (BUN) 17 7 - 25 mg/dL [facility] Creatinine, Serum 1.14 0.70 - 1.35 mg/dL [facility] eGFR 70 > OR = 60 mL/min/1. 73m2 [facility] [place] [facility] BUN/Creatinine Ratio SEE NOTE: 6 - 22 (calc) [facility] Comment: Not Reported: BUN and Creatinine are within reference range. Sodium 131(L) 135 - 146 mmol/L [facility] Potassium 5.2 3.5 - 5.3 mmol/L [facility] Chloride 97(L) 98 - 110 mmol/L [facility] Carbon Dioxide 25 20 - 32 mmol/L [facility] Calcium 9.7 8.6 - 10.3 mg/dL [facility] Protein, Total 7.0 6.1 - 8.1 g/dL [facility] Albumin 4.7 3.6 - 5.1 g/dL [facility] Globulin 2.3 1.9 - 3.7 g/dL (calc) [facility] Albumin/Globuli n Ratio 2.0 1.0 - 2.5 (calc) [facility] Bilirubin, Total 1.0 0.2 - 1.2 mg/dL [facility] [place] [facility] Alkaline Phosphatase 48 35 - 144 U/L [facility] AST 29 10 - 35 U/L [facility] ALT 27 9 - 46 U/L [facility] [place] [facility] Blood Venous blood specimen / Unknown 05/05/2024 11:44 AM EST 05/05/2024 11:46 AM EST Regis Gonzalez PA-C LAB BLOOD ORDERABLES Final R esult [facility] [address], [place] [address] [facility] [place] [facility] [address] [place] [phone] * (ABNORMAL) CBC auto differential (05/05/2024 11:44 AM EST) White Blood Cell Count 9.7 3.8 - 10.8 Thousand/ uL [facility] Red Blood Cell Count 4.20 4.20 - 5.80 Million/u L [facility] Hemoglobin 14.3 13.2 - 17.1 g/dL [facility] Hematocrit 40.3 38.5 - 50.0 % [facility] MCV 96.0 80.0 - 100.0 fL [facility] MCH 34.0(H) 27.0 - 33.0 pg [facility] MCHC 35.5 32.0 - 36.0 g/dL [facility] Comment: For adults, a slight decrease in the calculated MCHC value (in the range of 30 to 32 g/dL) is most likely not clinically significant; however, it should be interpreted with caution in correlation with other red cell parameters and the patient's clinical condition. RDW 11.5 11.0 - 15.0 % [facility] [place] [facility] Platelet Count 265 140 - 400 Thousand/ uL [facility] [place] [facility] MPV 10.2 7.5 - 12.5 fL [facility] Absolute Neutrophils 6,257 1,500 - 7,800 cells/uL [facility] Absolute Lymphocytes 1,707 850 - 3,900 cells/uL [facility] Absolute Monocytes 1,348(H) 200 - 950 cells/uL [facility] Absolute Eosinophils 320 15 - 500 cells/uL [facility] Absolute Basophils 68 0 - 200 cells/uL [facility] Neutrophils 64.5 % [facility] Lymphocytes 17.6 % [facility] Monocytes 13.9 % [facility] Eosinophils 3.3 % [facility] Basophils 0.7 % [facility] [place] [facility] Blood Venous blood specimen / Unknown 05/05/2024 11:44 AM EST 05/05/2024 11:46 AM EST Regis Gonzalez PA-C LAB BLOOD ORDERABLES Final R esult Performing Organization Address [facility] Co de Phone Number [facility] [address], [facility] [place] [address] [facility] [place] [facility] [address] [place] [address] * Albumin, Random Urine W/Creatinine (05/05/2024 11:44 AM EST) Creatinine, Random Urine 197 20 - 320 mg/dL [facility] Albumin, Urine 0.7 See Note: mg/dL [email or web address] Comment: Reference Range: Reference Range Not established Albumin/Creatinin e Ratio, Random Urine 4 <30 mg/g creat [email or web address] Comment: The ADA defines abnormalities in albumin [...] 11:46 AM EST Regis Gonzalez PA-C LAB URINE ORDERABLES Final R esult Performing Organization Address City/[facility] Co de Phone Number [address], [facility] [place] [address] [facility] [place] [facility] [address] [place] [phone] * Hemoglobin A1c (05/05/2024 11:44 AM EST) Hemoglobin A1c 5.5 <5.7 % of total Hgb [facility] [place] [facility] Comment: For the purpose of screening for the presence of diabetes: <5.7% Consistent with the absence of diabetes 5.7-6.4% Consistent with increased risk for diabetes (prediabetes) > or =6.5% Consistent with diabetes This assay result is consistent with a decreased risk of diabetes. Currently, no consensus exists regarding use of hemoglobin A1c for diagnosis of diabetes in children. According to [place] Diabetes Association (ADA) guidelines, hemoglobin A1c <7.0% represents optimal control in non- diabetic patients. Different metrics may apply to specific patient populations. Standards of Medical Care in Diabetes(ADA). Blood Venous blood specimen / Unknown 05/05/2024 11:44 AM EST 05/05/2024 11:46 AM EST us Regis Gonzalez PA-C LAB BLOOD ORDERABLES Final R esult [facility] [address], [place] [address] [facility] [place] [facility] [address] [place] [address] * (ABNORMAL) Lipid Panel with Reflex to Direct LDL (05/05/2024 11:44 AM EST) [facility] Signature Cholesterol, Total 126 <200 mg/dL [email or web address] HDL Cholesterol 43 > OR = 40 mg/dL [email or web address] Triglycerides 219(H) <150 mg/dL [email or web address] Comment: If a non-fasting specimen was collected, consider repeat triglyceride testing on a fasting specimen if clinically indicated. Cathie et al. J. of Clin. Lipidol. 2015;9:129-169. LDL Cholesterol 54 mg/dL [facility] Comment: Reference range: <100 Desirable range <100 mg/dL for primary prevention; <70 mg/dL for patients with CHD or diabetic patients with > or = 2 CHD risk factors. LDL-C is now calculated using the Justino-Rupa calculation, which is a validated novel method providing better accuracy than the Friedewald equation in the estimation of LDL-C. Justino MONROE et al. PALLAVI. 2013;310(19): 4159-8290 (http://education.WiLinx/faq/CJW438) Chol/HDLC Ratio 2.9 <5.0 (calc) [email or web address] Non-HDL Cholesterol 83 <130 mg/dL [facility] Comment: For patients with diabetes plus 1 major ASCVD risk factor, treating to a non-HDL-C goal of <100 mg/dL (LDL-C of <70 mg/dL) is considered a therapeutic option. Blood Venous blood specimen / Unknown 05/05/2024 11:44 AM EST 05/05/2024 11:46 AM EST Regis Gonzalez PA-C LAB BLOOD ORDERABLES Final R esult [facility] [address], [place] [address] [facility] [address] [place] [address] documented in this encounter Visit Diagnoses Diagnosis Disorder associated with type 2 diabetes mellitus (CMS/HCC) Primary hypertension Unspecified essential hypertension documented in this encounter Care Teams Elect Equip Maint Eng Relationship Specialty Start Date End Date Regis Gonzalez PA-C [address] [place] [address] PCP - General Family Medicine 04/22/24 Naveen Owens II, MD [address] [place] [address] Cardiology 04/10/19 Curtis Preciado [address] [place] [address] Electrophysiology 04/22/24 documented as of this encounter
--- OUTSIDE RECORDS SUMMARY | 2025-02-16 16:35 | XMS_ITS | Encounter Summary ---
Author Organization [employer] Address [address] [facility] 7t [place] [address] Care Team Providers Care Type Photography Supervisor Name Role Phone Regis Gonzalez PA-C Primary Care Provider + [phone] Graciela BRIONES MD, Naveen Griffith Unavailable [phone] Curtis Preciado Unavailable Encounter Details Date Type Department Care Team ([facility] Contact Info) Description 04/28/2024 Orders Only [facility] [address] [place] [phone] Provider, Not In System Social History Tobacco [...] Description 05/11/2025 1:20 PM EST Office Visit [facility] [address] [facility] [address] [place] [address] Regis Gonzalez PA-C [address] [place] [address] documented as of this encounter Procedures Procedure Name Priority Date/Time Associated Diagnosis Comments HM COLONOSCOPY Routine 01/07/2024 1:05 PM EDT ECG 12-LEAD Routine 12/28/2021 8:01 AM EDT documented in this encounter Results * Hm Colonoscopy (01/07/2024 1:05 PM EDT) us Not In System Provider HEALTH MAINTENANCE Edited Result - Final * ECG 12 lead (12/28/2021 8:01 AM EDT) us Not In System Provider ECG ORDERABLES Final Res ult documented in this encounter Visit Diagnoses Not on filedocumented in this encounter Care Teams Type Photography Supervisor Relationship Specialty Start Date End Date Regis Gonzalez PA-C [address] [place] [address] PCP - General Family Medicine 04/22/24 Naveen Owens II, MD [address] [place] [address] Cardiology 04/10/19 Curtis Preciado [address] [place] [address] Electrophysiology 04/22/24 documented as of this encounter
--- OUTSIDE RECORDS SUMMARY | 2025-02-16 16:35 | XMS_ITS | Encounter Summary ---
Author Organization [employer] Address [address] [facility] 7t [place] [address] Care Team Providers Care Trading Specialist Name Role Phone Regis Gonzalez PA-C Primary Care Provider [phone] Graciela BRIONES MD, Naveen Griffith Unavailable [phone] Curtis Preciado Unavailable Encounter Details Date Type Department Care Team (Late Contact Info) Description 10/23/2024 Telephone [facility] [address] [facility] [address] [place] [address] Regis Gonzalez PA-C [address] [place] [address] Social History Tobacco Use Types [...] the past 12 months, has t he [employer], gas, oil or water company threatened to [...] encounter Miscellaneous Notes * Telephone Encounter - Zonia Lowery RN - 10/26/2024 8:57 AM EDT Pt notified * Telephone Encounter - Aimee Zamora - 10/23/2024 3:15 PM EDT Patient wants a call back from about a referral to dermatology, did not want to schedule an apptand I did not see any mention of it in the patient's chart. Patient was advised they'll need to have an about to speak about it. Call back# [phone] documented in this encounter Plan of Treatment Upcoming Encounters Date Type Department Care Team (Late st Contact Info) Description 05/11/2025 1:20 PM EST Office Visit [facility] [address] [facility] [address] [place] [address] Regis Gonzalez PA-C [address] [place] [address] documented as of this encounter Visit Diagnoses Not on filedocumented in this encounter Care Teams Trading Specialist Relationship Specialty Start Date End Date Regis Gonzalez PA-C [address] [place] [address] PCP - General Family Medicine 04/22/24 Naveen Owens II, MD [address] [place] [address] Cardiology 04/10/19 Curtis Preciado [address] [place] [address] Electrophysiology 04/22/24 documented as of this encounter
--- OUTSIDE RECORDS SUMMARY | 2025-02-16 16:35 | XMS_ITS | Encounter Summary ---
Author Organization [employer] Address [address] [facility] 7t [place] [address] Care Team Providers Care Lumber Stacker Driver Name Role Phone Regis Gonzalez PA-C Primary Care Provider + [phone] Graciela BRIONES MD, Naveen Griffiht Unavailable [phone] Curtis Preciado Unavailable Encounter Details Date Type Department Care Team ([facility] Contact Info) Description 11/30/2024 Orders Only [facility] [address] [place] [address] Provider, Not In System Social History Tobacco [...] Description 05/11/2025 1:20 PM EST Office Visit [facility] [address] [facility] [address] [place] [address] Regis Gonzalez PA-C [address] [place] [address] documented as of this encounter Procedures Procedure Name Priority Date/Time Associated Diagnosis Comments DIABETES EYE EXAM Routine 11/26/2024 10:13 AM EDT documented in this encounter Results * Diabetes Eye Exam (11/26/2024 10:13 AM EDT) us Not In System Provider HEALTH MAINTENANCE Edited Result - Final documented in this encounter Visit Diagnoses Not on filedocumented in this encounter Care Teams Lumber Stacker Driver Relationship Specialty Start Date End Date Regis Gonzalez PA-C [address] [place] [address] PCP - General Family Medicine 04/22/24 Naveen Owens II, MD [address] [place] [address] Cardiology 04/10/19 Curtis Preciado [address] [place] [address] Electrophysiology 04/22/24 documented as of this encounter
== END 2025-02-16 15:20 | disposition home or self-care (01) ==
LOC: HO.HNS 13:55
PROVIDERS: Referring Provider Family Medicine; Visit Provider Physician Assistant
DX: M48.00 Spinal stenosis, site unspecified (principal)
CPT/HCPCS: 99204

== ENCOUNTER → 2025-02-16 13:54 | Outpatient (BNVA) | payer MEDICARE, SELFPAY | PROVIDERS: Referring Provider Family Medicine; Visit Provider Physician Assistant | DX: M48.00 Spinal stenosis, site unspecified (principal) | CPT/HCPCS: 99202 ==